=== PATIENT | male | born 1995 | race Caucasian/White ===

== ENCOUNTER 2019-02-23 13:37 | Emergency (ER) | payer BC ==
--- NOTE | 2019-02-23 15:16 | ER ---
Nurse's Notes [facility] Name: Ar Lopez Age: 23 yrs Sex: Male : 1995 Arrival Date: 02/23/2019 Time: 13:41 Bed 9 Private MD: Diagnosis: Acute nasopharyngitis [common cold] Presentation: 02/23 13:43 Presenting complaint: Patient states: Feeling sick for the last three days, cough, la1 congestion, sore throat, chills. Transition of care: patient was not received from another setting of care. Onset of symptoms was February 23, 2019. Risk Assessment: Do you want to hurt yourself or someone else? Patient reports no desire to harm self or others. Initial Sepsis Screen: Does the patient meet any 2 criteria? No. Patient's initial sepsis screen is negative. Does the patient have a suspected source of infection? No. Patient's initial sepsis screen is negative. Care prior to arrival: None. 13:43 Method Of Arrival: Ambulatory la1 13:43 Acuity: AJ 4 la1 Historical: - Allergies: 14:00 No Known Allergies; la1 - PMHx: 14:00 None; la1 - Immunization history:: Adult Immunizations up to date. - Social history:: Smoking status: Patient/guardian denies using tobacco. - Ebola Screening: : No symptoms or risks identified at this time. Screenin:00 Abuse screen: Denies threats or abuse. Denies injuries from another. Nutritional la1 screening: No deficits noted. Tuberculosis screening: No symptoms or risk factors identified. Fall Risk None identified. Assessment: 13:59 Reassessment: Patient is alert, oriented x 3, equal unlabored respirations, skin la1 warm/dry/pink. Pain: Complains of pain in sore throat. Neuro: Level of Consciousness is awake, alert, obeys commands, Oriented to person, place, time, situation, Gait is steady. Cardiovascular: Capillary refill < 3 seconds Patient's skin is warm and dry. Respiratory: Airway is patent Trachea midline Respiratory effort is even, unlabored, Breath sounds are clear bilaterally. GI: No signs and/or symptoms were reported involving the gastrointestinal system. : No signs and/or symptoms were reported regarding the genitourinary system. EENT: Throat is reddened. Vital Signs: 13:45 BP 133 / 76; Pulse 88; Resp 16; Temp 98.4; Pulse Ox 100% on R/A; Weight 73.94 kg; la1 Height 6 ft. 10 in. (208.28 cm); 13:45 Body Mass Index 17.04 (73.94 kg, 208.28 cm) la1 ED Course: 13:41 Patient arrived in ED. mr 13:43 Triage completed. la1 13:45 Arm band placed on left wrist. la1 13:59 Popeye Peacock, RN is Primary Nurse. la1 14:00 Patient has correct armband on for positive identification. la1 14:00 No provider procedures requiring assistance completed. Patient did not have IV access la1 during this emergency room visit. 14:07 Baudilio Martinez NP is PHCP. pm1 14:07 Vane Jack MD is Attending Physician. pm1 Administered Medications: No medications were administered Outcome: 15:14 Discharge ordered by MD. pm1 15:38 Discharged to home ambulatory, with family. ss 15:38 Condition: good 15:38 Discharge instructions given to patient, family, Instructed on discharge instructions, follow up and referral plans. medication usage, Demonstrated understanding of instructions, follow-up care, medications, Prescriptions given X 1. 15:38 Patient left the ED. ss Signatures: Cookie Finch Shelby, RN RN Popeye Peacock RN RN la Baudilio Martinez NP STEWARD/STEWARDESS CHIEF CARGO VESSEL pm1
--- NOTE | 2019-02-23 15:16 | EDPHYS ---
Physician Documentation [facility] Name: Ar Lopez Age: 23 yrs Sex: Male : 1995 Arrival Date: 02/23/2019 Time: 13:41 Bed 9 Private MD: ED Physician Vane Jack HPI: 02/23 14:16 This 23 yrs old Male presents to ER via Ambulatory with complaints of Sore pm1 Throat, Cough, Congestion. 14:16 The patient presents with sore throat. pm1 14:16 The patient describes throat pain as constant, raw, scratchy. Onset: The pm1 symptoms/episode began/occurred 3 day(s) ago. Severity of symptoms: in the emergency department the symptoms are unchanged. Modifying factors: The symptoms are alleviated by nothing, the symptoms are aggravated by swallowing, Patient's oral intake status: good The patient has had contact with sick who is present in the ER for the same complaint. Associated signs and symptoms: Pertinent positives: cough, Sore throat sinus congestion, Pertinent negatives fever. Historical: - Allergies: 14:00 No Known Allergies; la1 - PMHx: 14:00 None; la1 - Immunization history:: Adult Immunizations up to date. - Social history:: Smoking status: Patient/guardian denies using tobacco. - Ebola Screening: : No symptoms or risks identified at this time. ROS: 14:16 Constitutional: Negative for fever, chills, and weight loss, Eyes: Negative for injury, pm1 pain, redness, and discharge. 14:16 Neck: Negative for injury, pain, and swelling, Cardiovascular: Negative for chest pain, palpitations, and edema. 14:16 Abdomen/GI: Negative for abdominal pain, nausea, vomiting, diarrhea, and constipation, Back: Negative for injury and pain, MS/Extremity: Negative for injury and deformity, Skin: Negative for injury, rash, and discoloration, Neuro: Negative for headache, weakness, numbness, tingling, and seizure. 14:16 ENT: Positive for sinus congestion, sore throat, Negative for drainage from ear(s), ear pain. 14:16 Respiratory: Positive for cough, Negative for shortness of breath, sputum production, wheezing. Exam: 14:16 Constitutional: This is a well developed, well nourished patient who is awake, alert, pm1 and in no acute distress. Head/Face: Normocephalic, atraumatic. Eyes: Pupils equal round and reactive to light, extra-ocular motions intact. Lids and lashes normal. Conjunctiva and sclera are non-icteric and not injected. Cornea within normal limits. Periorbital areas with no swelling, redness, or edema. Neck: Trachea midline, no thyromegaly or masses palpated, and no cervical lymphadenopathy. Supple, full range of motion without nuchal rigidity, or vertebral point tenderness. No Meningismus. Chest/axilla: Normal chest wall appearance and motion. Nontender with no deformity. No lesions are appreciated. Cardiovascular: Regular rate and rhythm with a normal S1 and S2. No gallops, murmurs, or rubs. Normal PMI, no JVD. No pulse deficits. Respiratory: Lungs have equal breath sounds bilaterally, clear to auscultation and percussion. No rales, rhonchi or wheezes noted. No increased work of breathing, no retractions or nasal flaring. Abdomen/GI: Soft, non-tender, with normal bowel sounds. No distension or tympany. No guarding or rebound. No evidence of tenderness throughout. Back: No spinal tenderness. No costovertebral tenderness. Full range of motion. Skin: Warm, dry with normal turgor. Normal color with no rashes, no lesions, and no evidence of cellulitis. MS/ Extremity: Pulses equal, no cyanosis. Neurovascular intact. Full, normal range of motion. 14:16 ENT: External ear(s): are unremarkable, Ear canal(s): are normal, TM's: are normal, Posterior pharynx: Airway: normal, no evidence of obstruction, patent, Tonsils: bilaterally enlarged, with erythema, no exudate, no ulcerations, peritonsillar mass, is not appreciated. Vital Signs: 13:45 BP 133 / 76; Pulse 88; Resp 16; Temp 98.4; Pulse Ox 100% on R/A; Weight 73.94 kg; la1 Height 6 ft. 10 in. (208.28 cm); 13:45 Body Mass Index 17.04 (73.94 kg, 208.28 cm) la1 MDM: 14:16 Patient medically screened. pm1 15:13 Data reviewed: vital signs. Data interpreted: Pulse oximetry: on room air is 100 %. pm1 Interpretation: normal. Counseling: I had a detailed discussion with the patient and/or guardian regarding: the historical points, exam findings, and any diagnostic results supporting the discharge/admit diagnosis, lab results, the need for outpatient follow up, to return to the emergency department if symptoms worsen or persist or if there are any questions or concerns that arise at home. 02/23 13:42 Order name: Strep; Complete Time: 15:31 la1 02/23 13:42 Order name: Flu; Complete Time: 15:31 la1 02/23 14:33 Order name: Throat Culture EDMS Administered Medications: No medications were administered Disposition: 02/23/19 15:14 Discharged to Home. Impression: Acute nasopharyngitis [common cold]. - Condition is Stable. - Discharge Instructions: Antibiotic Resistance, Upper Respiratory Infection, Pediatric, Viral Respiratory Infection. - Prescriptions for Bromfed DM 2- 30-10 mg/5 mL Oral syrup - take 10 milliliter by ORAL route every 4 hours As needed; 200 milliliter. - Medication Reconciliation Form, Thank You Letter, Antibiotic Education, Prescription Opioid Use form. - Follow up: Emergency Department; When: As needed; Reason: Worsening of condition. Follow up: Private Physician; When: 2 - 3 days; Reason: Recheck today's complaints, Continuance of care, Re-evaluation by your physician. - Problem is new. - Symptoms have improved. Addendum: 02/24/2019 16:44 Co-signature as Attending Physician, Vane Jack MD I agree with the assessment m a2 and plan of care. Signatures: Dispatcher [facility] Alison Ca RN RN ss Attema, Lee, RN RN la1 Baudilio Martinez NP JOINTER MACHINE OPERATOR pm1 Vane Jack MD MD md2 Corrections: (The following items were deleted from the chart) 02/23 15:38 15:14 02/23/2019 15:14 Discharged to Home. Impression: Acute nasopharyngitis [common ss cold]. Condition is Stable. Forms are Medication Reconciliation Form, Thank You Letter, Antibiotic Education, Prescription Opioid Use. Follow up: Emergency Department; When: As needed; Reason: Worsening of condition. Follow up: Private Physician; When: 2 - 3 days; Reason: Recheck today's complaints, Continuance of care, Re-evaluation by your physician. Problem is new. Symptoms have improved. pm1
[2019-02-23 16:01] VITALS: BP 133/76; TEMP 98.4; O2SAT 100
== END 2019-02-23 15:38 | disposition home or self-care (01) ==
LOC: ER 13:37
DX: J00 Acute nasopharyngitis [common cold] (principal)
CPT/HCPCS: 87070; 87081; 87804; 99282

== ENCOUNTER 2019-09-16 16:33 | Emergency (ER) | payer BC ==
[2019-09-16 17:50] LABS: Urine Bacteria 20-50 /HPF (NONE SEEN); Urine RBC <5 /HPF (NONE SEEN)
[2019-09-16 17:51] LABS: Urine Culture Reflex Order REFLEXED
--- NOTE | 2019-09-16 18:21 | EDPHYS ---
Physician Documentation [facility] Name: Ar Lopez Age: 23 yrs Sex: Male : 1995 Arrival Date: 09/16/2019 Time: 16:35 Bed 20 Private MD: ED Physician Yann Zaragoza HPI: 09/15 18:13 This 23 yrs old Male presents to ER via Ambulatory with complaints of Pain mh7 With Urination. 18:13 The patient presents with urinary symptoms, dysuria. Onset: The symptoms/episode mh7 began/occurred today. Modifying factors: The symptoms are alleviated by nothing, the symptoms are aggravated by nothing. Associated signs and symptoms: Pertinent positives: dysuria, penile discharge. Severity of symptoms: At their worst the symptoms were moderate, earlier today, in the emergency department the symptoms are unchanged. Patient states that he was out drinking 2 days ago and had unprotected sexual intercourse with a woman he did not know. He complains of burning with urination and penile discharge.. Historical: - Allergies: 16:48 No Known Allergies; ph - Home Meds: 16:48 None [Active]; ph - PMHx: 16:48 None; ph - Immunization history:: Adult Immunizations unknown. - Social history:: Smoking status: Patient reports the use of cigarette tobacco products, denies chronic smoking, but will smoke occasionally. ROS: 18:13 Constitutional: Negative for fever, chills, and weight loss, Eyes: Negative for injury, mh7 pain, redness, and discharge, ENT: Negative for injury, pain, and discharge, Neck: Negative for injury, pain, and swelling, Cardiovascular: Negative for chest pain, palpitations, and edema, Respiratory: Negative for shortness of breath, cough, wheezing, and pleuritic chest pain, Abdomen/GI: Negative for abdominal pain, nausea, vomiting, diarrhea, and constipation, Back: Negative for injury and pain, MS/Extremity: Negative for injury and deformity, Skin: Negative for injury, rash, and discoloration, Neuro: Negative for headache, weakness, numbness, tingling, and seizure, Psych: Negative for depression, anxiety, suicide ideation, homicidal ideation, and hallucinations, Allergy/Immunology: Negative for hives, rash, and allergies, Endocrine: Negative for neck swelling, polydipsia, polyuria, polyphagia, and marked weight changes, Hematologic/Lymphatic: Negative for swollen nodes, abnormal bleeding, and unusual bruising. Exam: 18:13 Constitutional: This is a well developed, well nourished patient who is awake, alert, mh7 and in no acute distress. Head/Face: Normocephalic, atraumatic. Eyes: Pupils equal round and reactive to light, extra-ocular motions intact. Lids and lashes normal. Conjunctiva and sclera are non-icteric and not injected. Cornea within normal limits. Periorbital areas with no swelling, redness, or edema. ENT: Nares patent. No nasal discharge, no septal abnormalities noted. Tympanic membranes are normal and external auditory canals are clear. Oropharynx with no redness, swelling, or masses, exudates, or evidence of obstruction, uvula midline. Mucous membranes moist. Neck: Trachea midline, no thyromegaly or masses palpated, and no cervical lymphadenopathy. Supple, full range of motion without nuchal rigidity, or vertebral point tenderness. No Meningismus. Chest/axilla: Normal chest wall appearance and motion. Nontender with no deformity. No lesions are appreciated. Cardiovascular: Regular rate and rhythm with a normal S1 and S2. No gallops, murmurs, or rubs. Normal PMI, no JVD. No pulse deficits. Respiratory: Lungs have equal breath sounds bilaterally, clear to auscultation and percussion. No rales, rhonchi or wheezes noted. No increased work of breathing, no retractions or nasal flaring. Abdomen/GI: Soft, non-tender, with normal bowel sounds. No distension or tympany. No guarding or rebound. No evidence of tenderness throughout. Back: No spinal tenderness. No costovertebral tenderness. Full range of motion. 18:13 Skin: Warm, dry with normal turgor. Normal color with no rashes, no lesions, and no evidence of cellulitis. MS/ Extremity: Pulses equal, no cyanosis. Neurovascular intact. Full, normal range of motion. Neuro: Awake and alert, GCS 15, oriented to person, place, time, and situation. Cranial nerves II-XII grossly intact. Motor strength 5/5 in all extremities. Sensory grossly intact. Cerebellar exam normal. Normal gait. Psych: Awake, alert, with orientation to person, place and time. Behavior, mood, and affect are within normal limits. 18:13 : CVA tenderness, is absent, Male external genitalia: Circumcision noted. Bladder: is normal, Sexual behavior: the patient is sexually active, and reports multiple partners. Vital Signs: 16:45 BP 147 / 85; Pulse 61; Resp 18; Temp 98.8; Pulse Ox 100% on R/A; Weight 73.94 kg; ph MDM: 18:12 Patient medically screened. [facility] 18:13 Differential diagnosis: UTI, urethritis, STD exposure. Data reviewed: vital signs, [facility] nurses notes, lab test result(s), urinalysis. Data interpreted: Pulse oximetry: on room air is 100 %. Interpretation: normal. Counseling: I had a detailed discussion with the patient and/or guardian regarding: the historical points, exam findings, and any diagnostic results supporting the discharge/admit diagnosis, the presence of at least one elevated blood pressure reading (>120/80) during this emergency department visit, lab results, the need for outpatient follow up, to return to the emergency department if symptoms worsen or persist or if there are any questions or concerns that arise at home. 09/15 17:18 Order name: GC (Raudel/Chl) Probe URINE [facility] 09/15 17:22 Order name: Urine Microscopic Only; Complete Time: 18:05 bp 09/15 17:25 Order name: Urine Dipstick--Ancillary (enter results) 09/15 17:52 Order name: Urine Culture [facility] / 17:22 Order name: Urine Dipstick-Ancillary (obtain specimen); Complete Time: 17:22 bp Administered Medications: 18:22 Drug: Rocephin (cefTRIAXone) 250 mg Route: IM; Site: right ventrogluteal; 18:26 Drug: AZITHromycin 1 grams Route: PO; Disposition: 09/16/19 18:21 Discharged to Home. Impression: Urethritis and urethral syndrome, Possible STD exposure. - Condition is Stable. - Discharge Instructions: Urethritis, Adult. - Medication Reconciliation Form, Thank You Letter, Antibiotic Education, Prescription Opioid Use form. - Follow up: Private Physician; When: 1 - 2 days; Reason: Worsening of condition, Recheck today's complaints, Re-evaluation by your physician. - Problem is new. - Symptoms are unchanged. Signatures: Dispatcher [employer] [facility] Deena Kerns RN RN Jorge Bustos, JENNIFER RN Nanda Mcclure, Yann Turcios RN, MD MD mh7 Corrections: (The following items were deleted from the chart) 18:56 18:21 09/16/2019 18:21 Discharged to Home. Impression: Urethritis and urethral ah syndrome; Possible STD exposure. Condition is Stable. Forms are Medication Reconciliation Form, Thank You Letter, Antibiotic Education, Prescription Opioid Use. Follow up: Private Physician; When: 1 - 2 days; Reason: Worsening of condition, Recheck today's complaints, Re-evaluation by your physician. Problem is new. Symptoms are unchanged. mh7
--- NOTE | 2019-09-16 18:21 | ER ---
Nurse's Notes [facility] Name: Ar Lopez Age: 23 yrs Sex: Male : 1995 Arrival Date: 09/16/2019 Time: 16:35 Bed 20 Private MD: Diagnosis: Urethritis and urethral syndrome;Possible STD exposure Presentation: 09/15 16:45 Chief complaint: Patient states: " I drank a bunch of spicy beers yesterday and last ph night it started burning when I pee." Denies fever, N/V, does states that he had unprotected sex recently. Coronavirus screen: Patient denies a cough. Patient denies shortness of breath or difficulty breathing. Patient denies measured and/or subjective temperature greater than 100.4F prior to today's visit. Patient denies travel on a cruise ship or to a country the [facility] currently lists as an affected area. Patient denies contact with known and/or suspected case of COVID-19. Ebola Screen: No symptoms or risks identified at this time. Initial Sepsis Screen: Does the patient meet any 2 criteria? No. Patient's initial sepsis screen is negative. Does the patient have a suspected source of infection? No. Patient's initial sepsis screen is negative. Risk Assessment: Do you want to hurt yourself or someone else? Patient reports no desire to harm self or others. Onset of symptoms was September 16, 2019. 16:45 Method Of Arrival: Ambulatory ph 16:45 Acuity: AJ 4 ph Triage Assessment: 16:50 General: Appears in no apparent distress. comfortable, Behavior is cooperative, bp appropriate for age, anxious. Pain: Denies pain. EENT: No deficits noted. Neuro: No deficits noted. Cardiovascular: No deficits noted. Respiratory: No deficits noted. GI: No signs and/or symptoms were reported involving the gastrointestinal system. : Reports burning with urination. Derm: No deficits noted. Musculoskeletal: No deficits noted. Historical: - Allergies: 16:48 No Known Allergies; ph - Home Meds: 16:48 None [Active]; ph - PMHx: 16:48 None; ph - Immunization history:: Adult Immunizations unknown. - Social history:: Smoking status: Patient reports the use of cigarette tobacco products, denies chronic smoking, but will smoke occasionally. Screenin:25 Abuse screen: Denies threats or abuse. Nutritional screening: No deficits noted. Tuberculosis screening: No symptoms or risk factors identified. Fall Risk None identified. Assessment: 16:50 General: SEE TRIAGE NOTE. bp Vital Signs: 16:45 BP 147 / 85; Pulse 61; Resp 18; Temp 98.8; Pulse Ox 100% on R/A; Weight 73.94 kg; ph ED Course: 16:35 Patient arrived in ED. as 16:48 Triage completed. ph 16:48 Arm band placed on Patient placed in an exam room. ph 17:09 Yann Zaragoza MD is Attending Physician. [facility] 17:21 Jorge Wilson, RN is Primary Nurse. bp 17:26 Patient has correct armband on for positive identification. Bed in low position. Call bp light in reach. Side rails up X2. 18:35 No provider procedures requiring assistance completed. Patient did not have IV access during this emergency room visit. Administered Medications: 18:22 Drug: Rocephin (cefTRIAXone) 250 mg Route: IM; Site: right ventrogluteal; 18:26 Drug: AZITHromycin 1 grams Route: PO; Outcome: 18:21 Discharge ordered by [facility] 18:40 Discharged to home ambulatory. 18:40 Condition: good 18:40 Discharge instructions given to patient, Instructed on discharge instructions, follow up and referral plans. Demonstrated understanding of instructions, follow-up care. 18:56 Patient left the ED. Signatures: Mercedes Beasley Patricia RN RN Jorge Wilson RN RN bp Harris, Amy, RN RN Yann Zaragoza MD MD [facility]
[2019-09-16] MEDS ORDERED: LIDOCAINE 1% MPF 2 ML AMPULE ONE ×2 (18:23→18:25)
[2019-09-16] MEDS ORDERED: CEFTRIAXONE 250 MG/VIAL ONE (18:25)
[2019-09-16 19:02] VITALS: BP 147/85; TEMP 98.8; O2SAT 100
[2019-09-16 20:46] LABS: Urine Blood TRACE (NEG); Urine Glucose NEGATIVE (NEG); Urine Specific Gravity 1.025 (1.005-1.030)
[2019-09-16 20:47] LABS: Urine Protein NEGATIVE (NEG)
[2019-09-20 11:23] LABS: C.trachomatis RNA,TMA Detected (Not Detected)
== END 2019-09-16 18:56 | disposition home or self-care (01) ==
LOC: ER 16:33
DX: N34.2 Other urethritis (principal); N34.3 Urethral syndrome, unspecified; F17.210 Nicotine dependence, cigarettes, uncomplicated
CPT/HCPCS: 87088; 87590; 87490; 96372; 99283; J2001 ×2; J0696; 81003; 81015; 87086